=== PATIENT | female | born 1985 | race Two or more races ===

== ENCOUNTER 2018-03-13 10:59 | Inpatient (IN) | payer MEDICAID ==
[~2018-03-13] VITALS: Ht 175.3 cm; Wt 106.8 kg
[2018-03-13 12:00] VITALS: BP 119/74
[2018-03-13] MEDS ORDERED: D5%-LACTATED RINGERS 1,000 ML IV SCH (13:50)
[2018-03-13] MEDS ORDERED: OXYTOCIN 30U/ 0.9% NaCL 500ML 500 ML IV ONE (13:50)
[2018-03-13] MEDS ORDERED: LACTATED RINGERS 1,000 ML IV SCH ×2 (13:50→23:26)
[2018-03-13] MEDS ORDERED: SODIUM CHLORIDE FLUSH 10ML SYR IVF PRN (14:00)
[2018-03-13] MEDS ORDERED: SODIUM CITRATE/CITRIC ACID 30 ML UDC PO PRN (14:00)
[2018-03-13] MEDS ORDERED: CALCIUM CARBONATE 500 MG TAB.CHEW PO PRN (14:00)
[2018-03-13] MEDS ORDERED: METOCLOPRAMIDE 5 MG/ML, 2ML IVPush PRN (14:00)
[2018-03-13] MEDS ORDERED: FENTANYL PF 100 MCG/2ML IVPush PRN (14:00)
[2018-03-13] MEDS ORDERED: ONDANSETRON 2MG/ML, 2ML IVPush PRN (14:00)
[2018-03-13] MEDS ORDERED: FENTANYL PF 100 MCG/2ML IV PRN (14:00)
[2018-03-13] MEDS: CLINDAMYCIN PMX 900MG/50ML 50 ML IV SCH ×2 (15:00→22:34)
[2018-03-13 15:36] LABS: MEAN CORPUSCULAR HEMOGLOBIN 31.3 pg (27.0-34.8); MEAN CORPUSCULAR HGB CONC 33.9 g/dL (32.4-35.8); MEAN CORPUSCULAR VOLUME 92.3 fL (80-100); PLATELET COUNT 113 x10^3/uL (130-400); RED BLOOD COUNT 4.16 x10^6/uL (3.82-5.3); RED CELL DISTRIBUTION WIDTH 14.1 % (9.6-15.2)
[2018-03-13 15:37] LABS: MD YES
[2018-03-13 16:59] LABS: BAND#(MANUAL) 0.12 x10^3/uL; BANDS%(MANUAL) 1 % (0-7); LYMPH#(MANUAL) 2.71 x10^3/uL (1-3.4); LYMPHS% (MANUAL) 22 % (22-44); MONOS#(MANUAL) 0.62 x10^3/uL (0.3-2.7); MONOS% (MANUAL) 5 % (2-9); SEG#(MANUAL) 8.86 x10^3/uL (1.8-6.8); SEGS% (MANUAL) 72 % (42-75)
[2018-03-13 17:01] LABS: <RBC MORPHOLOGY> NORMAL
[2018-03-13 17:02] LABS: GIANT PLATELETS 1+
[2018-03-13 17:03] LABS: <PLATELET ESTIMATE> ADEQUATE
[2018-03-13] MEDS ORDERED: NEWBORN KIT ONE (18:32)
[2018-03-13] MEDS ORDERED: LIDOCAINE/PF 1%, 30ML ONE (18:33)
[2018-03-13] MEDS ORDERED: OXYTOCIN 30U/ 0.9% NaCL 500ML 500 ML ONE (18:34)
[2018-03-13] MEDS ORDERED: MISOPROSTOL 200 MCG TABLET ONE (18:34)
[2018-03-13] MEDS ORDERED: OXYTOCIN 30U/ 0.9% NaCL 500ML 500 ML IV PRN (21:50)
[2018-03-13] MEDS ORDERED: CLINDAMYCIN PMX 900MG/50ML 50 ML ONE ×2 (22:31)
[2018-03-13] MEDS ORDERED: FENTANYL PF 100 MCG/2ML ONE (23:17)
[2018-03-13] MEDS ORDERED: FENTANYL/BUPIV./NS/PF 250 ML EPIDCONT SCH (23:26)
[2018-03-13] MEDS ORDERED: LACTATED RINGERS 1,000 ML IVBOLUS PRN (23:30)
[2018-03-14] MEDS ORDERED: FENTANYL PF 100 MCG/2ML ONE (00:21)
[2018-03-14] MEDS ORDERED: FENTANYL/BUPIV./NS/PF 250 ML EPIDCONT ONE (00:22)
[2018-03-14] MEDS ORDERED: BUPIVACAINE/PF 0.5% ONE (00:22)
[2018-03-14] MEDS ORDERED: OXYTOCIN 30U/ 0.9% NaCL 500ML 500 ML ONE (04:28)
[2018-03-14] MEDS ORDERED: LACTATED RINGERS 500 ML IVBOLUS ONE (04:30)
[2018-03-14] MEDS ORDERED: ONDANSETRON 2MG/ML, 2ML IVPush PRN (04:30)
[2018-03-14] MEDS: OXYTOCIN 30U/ 0.9% NaCL 500ML 500 ML IV SCH ×2 (05:34→15:34)
[2018-03-14] MEDS ORDERED: OXYcodone/APAP 5/325MG TABLET PO PRN ×2 (06:00)
[2018-03-14] MEDS: CLINDAMYCIN PMX 900MG/50ML 50 ML IV SCH (07:00)
[2018-03-14 07:20] VITALS: BP 111/76
[2018-03-14] MEDS: PRENATAL VIT/IRON/FA 1 EACH TABLET PO SCH (09:00)
[2018-03-14] MEDS: IBUPROFEN 600 MG TABLET PO PRN ×2 (10:11→19:52)
[2018-03-14 11:53] LABS: MEAN CORPUSCULAR HEMOGLOBIN 31.2 pg (27.0-34.8); MEAN CORPUSCULAR HGB CONC 33.7 g/dL (32.4-35.8); MEAN CORPUSCULAR VOLUME 92.5 fL (80-100); RED BLOOD COUNT 4.22 x10^6/uL (3.82-5.3); RED CELL DISTRIBUTION WIDTH 14.1 % (9.6-15.2)
[2018-03-14 12:00] VITALS: BP 111/72
[2018-03-14 12:29] LABS: BANDS%(MANUAL) 7 % (0-7); LYMPH#(MANUAL) 0.91 x10^3/uL (1-3.4); LYMPHS% (MANUAL) 4 % (22-44); MD YES; MONOS#(MANUAL) 0.91 x10^3/uL (0.3-2.7); MONOS% (MANUAL) 4 % (2-9); SEG#(MANUAL) 19.38 x10^3/uL (1.8-6.8); SEGS% (MANUAL) 85 % (42-75)
[2018-03-14 12:44] LABS: <PLATELET ESTIMATE> ADEQUATE; <RBC MORPHOLOGY> NORMAL; GIANT PLATELETS 1+; LARGE PLATELETS 1+; MEAN PLATELET VOLUME 10.6 fL (7.4-10.4); PLATELET COUNT 125 x10^3/uL (130-400)
[2018-03-14 16:00] VITALS: BP 113/73
[2018-03-14 20:37] VITALS: BP 111/74
[2018-03-15] VITALS: BP 112/71
[2018-03-15 04:00] VITALS: BP 110/69
[2018-03-15] MEDS: IBUPROFEN 600 MG TABLET PO PRN (08:58)
[2018-03-15] MEDS: DOCUSATE 100 MG CAPSULE PO PRN ×2 (08:58→20:31)
[2018-03-15] MEDS: PRENATAL VIT/IRON/FA 1 EACH TABLET PO SCH (08:58)
[2018-03-15 09:00] VITALS: BP 104/54
[2018-03-15 20:30] VITALS: BP 134/81
[2018-03-16 07:30] VITALS: BP 119/80
[2018-03-16] MEDS: PRENATAL VIT/IRON/FA 1 EACH TABLET PO SCH (09:00)
[2018-03-16] MEDS ORDERED: IBUP-1222 PO (09:40)
== END 2018-03-16 17:35 | disposition home or self-care (01) | DRG 807 ==
LOC: LDOP 10:59 → LDIP 12:36 → 2NW 03-14 07:04 → EDSTATUS 03-16 10:59
PROVIDERS: ADMIT Obstetrics & Gynecology; ATTEND Obstetrics & Gynecology
PROC: 10E0XZZ Delivery of Products of Conception, External Approach (ICD-10-PCS; principal; 2018-03-13)
PROC: 3E0R3BZ Introduction of Anesthetic Agent into Spinal Canal, Percutaneous Approach (ICD-10-PCS; 2018-03-13)
PROC: 00HU33Z Insertion of Infusion Device into Spinal Canal, Percutaneous Approach (ICD-10-PCS; 2018-03-13)
DX: O99.824 Streptococcus B carrier state complicating childbirth (principal); Z37.0 Single live birth; O69.81X0 Labor and delivery complicated by cord around neck, without compression, not applicable or unspecified; O34.211 Maternal care for low transverse scar from previous cesarean delivery; Z3A.39 39 weeks gestation of pregnancy; Z88.0 Allergy status to penicillin
CPT/HCPCS: 36415; 85025; 86850; 86900; 89060; G0378; J3010; J7120; Q0114

== ENCOUNTER 2018-06-30 17:13 | Inpatient (IN) | payer MEDICAID, OTHER ==
[~2018-06-30] VITALS: Ht 175.3 cm; Wt 93.0 kg
[~2018-06-30 17:13] MED LIST: IBUP-1222 PO
[2018-06-30] MEDS ORDERED: MORPHINE SULFATE 4 MG/ML, 1ML ONE ×2 (17:48→19:30)
[2018-06-30] MEDS ORDERED: KETOROLAC 30 MG/1 ML ONE (17:48)
[2018-06-30] MEDS ORDERED: ONDANSETRON 2MG/ML, 2ML ONE ×3 (17:48→20:58)
[2018-06-30] MEDS: MORPHINE SULFATE 4 MG/ML, 1ML IVPush PRN ×2 (17:56→19:35)
[2018-06-30] MEDS ORDERED: KETOROLAC 30 MG/1 ML IVPush ONE (18:00)
[2018-06-30] MEDS ORDERED: ONDANSETRON 2MG/ML, 2ML IVPush ONE ×2 (18:00→20:00)
[2018-06-30] MEDS ORDERED: SODIUM CHLORIDE FLUSH 10ML SYR IVF ONE (18:00)
--- NOTE | 2018-06-30 18:00 | NUR ---
PT PRESENTING TO ER FOR LEFT SIDE ABD PAIN WITH SOME LEFT FLANK PAIN STARTING THIS AFTERNOON WITH N/V. UA COLLECTED AND SENT, TEA/BLOOD TINGE COLOR TO IT. CONNECTED TO MONITORING, VSS. PT APPEARING PALE STATES CANNOT GET COMFORTABLE. MD TO BEDSIDE, ORDERS RECEIVED. FAMILY AT BEDSIDE. CALL LIGHT WITHIN REACH
--- NOTE | 2018-06-30 18:05 | NUR ---
PT MEDICATED PER JUL FOR PAIN AND NAUSEA. WHILE GETTING MEDS PT HAD ONE BOUT OF VOMITTING, APPROX 200MLS
[2018-06-30 18:08] LABS: CULTURE INDICATED? YES; MICROSCOPIC INDICATED
[2018-06-30 18:11] LABS: ALANINE AMINOTRANSFERASE 20 U/L (12-78); ALBUMIN 4.5 g/dL (3.4-5.0); CALCIUM 8.8 mg/dL (8.5-10.1); CREATININE 1.12 mg/dL (0.55-1.02)
[2018-06-30 18:16] LABS: ALKALINE PHOSPHATASE 57 U/L (45-117); ANION GAP 10 mmol/L (5-15); BILIRUBIN,TOTAL 1.2 mg/dL (0.2-1.0); TOTAL PROTEIN 7.7 g/dL (6.4-8.2)
[2018-06-30 18:18] LABS: CHLORIDE 108 mmol/L (98-107)
--- NOTE | 2018-06-30 18:33 | NUR ---
PT TAKEN TO CT
[2018-06-30 18:46] LABS: MD YES; MEAN CORPUSCULAR HGB CONC 34.3 g/dL (32.4-35.8); MEAN CORPUSCULAR VOLUME 90.3 fL (80-100); MEAN PLATELET VOLUME 11.1 fL (7.4-10.4); PLATELET COUNT 154 x10^3/uL (130-400); RED BLOOD COUNT 5.04 x10^6/uL (3.82-5.3); RED CELL DISTRIBUTION WIDTH 13.4 % (9.6-15.2)
[2018-06-30 18:47] LABS: <PLATELET ESTIMATE> ADEQUATE; <RBC MORPHOLOGY> NORMAL; BAND#(MANUAL) 1.34 x10^3/uL; BANDS%(MANUAL) 8 % (0-7); LYMPH#(MANUAL) 1.18 x10^3/uL (1-3.4); LYMPHS% (MANUAL) 7 % (22-44); MONOS#(MANUAL) 0.34 x10^3/uL (0.3-2.7); MONOS% (MANUAL) 2 % (2-9); SEGS% (MANUAL) 83 % (42-75)
[2018-06-30 18:48] LABS: GIANT PLATELETS 1+
--- NOTE | 2018-06-30 18:51 | NUR ---
STRAIGHT CATH UA COLLECTED AND SENT TO LAB PER MD REQUEST. AWAITING RESULTS AND RECHECK. NADN. FAMILY AT BEDSIDE. CALL LIGHT WITHIN REACH
[2018-06-30 18:59] LABS: CULTURE INDICATED? YES; MICROSCOPIC INDICATED
--- NOTE | 2018-06-30 19:05 | NUR ---
MD AT BEDSIDE TO UPDATE PT AND FAMILY ON POC
--- NOTE | 2018-06-30 19:15 | NUR ---
ALL RESULTS BACK AT THIS TIME, CHART UP FOR RECHECK
[2018-06-30] MEDS ORDERED: CEFTRIAXONE PMX 1GM/50ML 50 ML ONE (19:19)
--- NOTE | 2018-06-30 19:24 | NUR ---
ABX STARTED PER MD CARMEN STATES NO BLOOD CULTURES NEEDED. MD AT BEDSIDE TO UPDATE PT AND FAMILY ON POC.
[2018-06-30] MEDS ORDERED: CEFTRIAXONE PMX 1GM/50ML 50 ML IV ONE (19:30)
--- NOTE | 2018-06-30 19:34 | NUR ---
SECOND DOSE MORPHINE GIVEN WITH ZOFRAN 4MG (VERBAL ORDER) FOR PAIN AND NAUSEA. PT TO BE ADMITTED TO [facility]
--- NOTE | 2018-06-30 19:43 | NUR ---
REPORT GIVEN TO OR, PT TO BE TAKEN IN NEXT 10 MINUTES. PT UPDATED AND CURRENTLY GETTING COMPLETELY UNDRESSED
--- NOTE | 2018-06-30 19:49 | NUR ---
HOSPITALIST AT BEDSIDE FOR ADMIT. PT BEING TAKEN TO OR NOW
[2018-06-30] MEDS ORDERED: POLYETHYLENE GLYCOL 17 GM PACKET PO PRN (20:30)
[2018-06-30] MEDS ORDERED: ACETAMINOPHEN 325 MG TABLET PO PRN (20:30)
[2018-06-30] MEDS ORDERED: BISACODYL 10 MG SUPP PR PRN (20:30)
[2018-06-30] MEDS ORDERED: FENTANYL PF 250 MCG/5ML ONE (20:47)
[2018-06-30] MEDS ORDERED: PROPOFOL 10 MG/ML, 20ML ONE (20:58)
[2018-06-30] MEDS ORDERED: ROCURONIUM 10MG/ML,5ML ONE (20:58)
[2018-06-30] MEDS ORDERED: DEXAMETHASONE 4 MG/ML, 1ML ONE (20:58)
[2018-06-30] MEDS ORDERED: FENTANYL PF 100 MCG/2ML IV PRN (21:30)
[2018-06-30] MEDS ORDERED: HYDROmorphone 2 MG/ML, 1ML IVPush PRN (21:30)
[2018-06-30] MEDS ORDERED: MIDAZOLAM 1 MG/ML, 2ML IV PRN (21:30)
[2018-06-30] MEDS ORDERED: PROMETHAZINE 25 MG/ML, 1ML IV PRN (21:30)
[2018-06-30] MEDS ORDERED: LABETALOL 5MG/ML, 20ML IV PRN (21:30)
[2018-06-30] MEDS ORDERED: OXYcodone 5 MG/5 ML ORAL.SOL UDC PO PRN (21:30)
[2018-06-30] MEDS ORDERED: hydrALAzine 20 MG/ML, 1ML IV PRN (21:30)
[2018-06-30] MEDS ORDERED: ONDANSETRON 2MG/ML, 2ML IV PRN (21:30)
[2018-06-30] MEDS ORDERED: MEPERIDINE/PF 25MG/0.5ML IVPush PRN (21:30)
[2018-06-30 23:33] VITALS: BP 131/91
[2018-07-01] MEDS: NS + 20MEQ KCL 1,000 ML IV SCH ×3 (00:12→16:37)
[2018-07-01] MEDS: KETOROLAC 30 MG/1 ML IV PRN ×2 (00:12→07:28)
[2018-07-01 01:26] VITALS: BP 114/77
[2018-07-01] MEDS: OXYcodone IR 5MG TABLET PO PRN ×2 (02:45→10:16)
[2018-07-01] MEDS: ONDANSETRON 2MG/ML, 2ML IVPush PRN ×2 (02:53→10:16)
[2018-07-01 06:22] LABS: MEAN CORPUSCULAR HGB CONC 34.2 g/dL (32.4-35.8); MEAN CORPUSCULAR VOLUME 90.7 fL (80-100); MEAN PLATELET VOLUME 13.8 fL (7.4-10.4); PLATELET COUNT 145 x10^3/uL (130-400); RED BLOOD COUNT 4.73 x10^6/uL (3.82-5.3); RED CELL DISTRIBUTION WIDTH 13.3 % (9.6-15.2)
[2018-07-01 06:33] LABS: ALBUMIN 3.6 g/dL (3.4-5.0); ANION GAP 7 mmol/L (5-15); CALCIUM 8.7 mg/dL (8.5-10.1); CHLORIDE 111 mmol/L (98-107)
[2018-07-01 06:35] LABS: MD YES
[2018-07-01 06:37] LABS: <PLATELET ESTIMATE> ADEQUATE; <RBC MORPHOLOGY> NORMAL; ALANINE AMINOTRANSFERASE 15 U/L (12-78); ALKALINE PHOSPHATASE 49 U/L (45-117); BAND#(MANUAL) 2.32 x10^3/uL; BANDS%(MANUAL) 12 % (0-7); BILIRUBIN,TOTAL 1.6 mg/dL (0.2-1.0); CREATININE 1.21 mg/dL (0.55-1.02); LARGE PLATELETS 1+; LYMPH#(MANUAL) 0.58 x10^3/uL (1-3.4); LYMPHS% (MANUAL) 3 % (22-44); MONOS#(MANUAL) 1.93 x10^3/uL (0.3-2.7); MONOS% (MANUAL) 10 % (2-9); SEG#(MANUAL) 14.48 x10^3/uL (1.8-6.8); SEGS% (MANUAL) 75 % (42-75); TOTAL PROTEIN 6.5 g/dL (6.4-8.2)
[2018-07-01] MEDS: SENNA/DOCUSATE TABLET PO SCH (08:08)
[2018-07-01 08:41] VITALS: BP 111/78
[2018-07-01 13:25] VITALS: BP 116/75
[2018-07-01] MEDS: HYDROcodone/APAP 5/325 TABLET PO PRN ×3 (15:00→23:30)
[2018-07-01 19:48] VITALS: BP 125/85
[2018-07-01] MEDS: CEFTRIAXONE PMX 1GM/50ML 50 ML IV SCH (20:38)
[2018-07-02] MEDS: NS + 20MEQ KCL 1,000 ML IV SCH ×2 (00:57→12:30)
[2018-07-02 00:58] VITALS: BP 108/67
[2018-07-02] MEDS: HYDROcodone/APAP 5/325 TABLET PO PRN ×5 (05:33→19:01)
[2018-07-02 08:43] VITALS: BP 100/66
[2018-07-02] MEDS: SENNA/DOCUSATE TABLET PO SCH (09:36)
[2018-07-02 14:10] VITALS: BP 122/84
[2018-07-02 16:17] LABS: ANION GAP 6 mmol/L (5-15); CALCIUM 8.4 mg/dL (8.5-10.1); CHLORIDE 108 mmol/L (98-107); CREATININE 0.88 mg/dL (0.55-1.02)
[2018-07-02 16:29] LABS: <PLATELET ESTIMATE> DECREASED; <RBC MORPHOLOGY> NORMAL; BASOPHILS # (AUTO) 0.04 x10^3/uL (0-0.1); BASOPHILS % (AUTO) 0 % (0-1); EOSINOPHILS % (AUTO) 0 % (1-7); LYMPHOCYTES % (AUTO) 5 % (22-44); MD MORPH REVIEW ONLY; MEAN CORPUSCULAR VOLUME 91.2 fL (80-100); MONOCYTES # (AUTO) 0.88 x10^3/uL (0.2-0.8); MONOCYTES % (AUTO) 7 % (2-9); NEUTROPHILS # (AUTO) 10.92 x10^3/uL (1.8-6.8); NEUTROPHILS % (AUTO) 88 % (42-75); PLATELET COUNT 114 x10^3/uL (130-400); RED CELL DISTRIBUTION WIDTH 13.4 % (9.6-15.2)
[2018-07-02 16:31] LABS: LARGE PLATELETS 2+
[2018-07-02] MEDS: CEFTRIAXONE PMX 1GM/50ML 50 ML IV SCH (19:01)
[2018-07-02 19:17] VITALS: BP 132/82
[2018-07-02] MEDS: ONDANSETRON 2MG/ML, 2ML IVPush PRN (20:03)
[2018-07-03] MEDS: HYDROcodone/APAP 5/325 TABLET PO PRN ×4 (01:01→13:13)
[2018-07-03 03:01] VITALS: BP 116/76
[2018-07-03 07:50] VITALS: BP 106/71
[2018-07-03 08:47] VITALS: BP 107/71
[2018-07-03] MEDS: SENNA/DOCUSATE TABLET PO SCH (08:49)
[2018-07-03] MEDS ORDERED: CEFD300C37 PO (12:59)
[2018-07-03 13:14] VITALS: BP 117/78
[2018-07-03] MEDS ORDERED: HYDR-3240 PO ×2 (13:53→13:56)
[2018-07-03] MEDS ORDERED: KETO10TA PO (13:55)
== END 2018-07-03 14:23 | disposition home or self-care (01) | DRG 854 ==
LOC: OR 19:41 → EDIP 19:44 → 4NOR 22:53 → DCLOUNGE 07-03 14:06
PROVIDERS: ADMIT Hospitalist; ATTEND Hospitalist
PROC: 0TC78ZZ Extirpation of Matter from Left Ureter, Via Natural or Artificial Opening Endoscopic (ICD-10-PCS; 2018-06-30)
PROC: BT1F1ZZ Fluoroscopy of Left Kidney, Ureter and Bladder using Low Osmolar Contrast (ICD-10-PCS; 2018-06-30)
PROC: 0T9B70Z Drainage of Bladder with Drainage Device, Via Natural or Artificial Opening (ICD-10-PCS; 2018-06-30)
PROC: 0T778DZ Dilation of Left Ureter with Intraluminal Device, Via Natural or Artificial Opening Endoscopic (ICD-10-PCS; principal; 2018-06-30 20:30)
DX: A41.9 Sepsis, unspecified organism (principal); N13.6 Pyonephrosis; R17 Unspecified jaundice; E87.6 Hypokalemia; F12.90 Cannabis use, unspecified, uncomplicated; R00.1 Bradycardia, unspecified; Z16.29 Resistance to other single specified antibiotic; Z88.0 Allergy status to penicillin
CPT/HCPCS: 36415; 74176; 80048; 80053; 81001; 82360; 83690; 84703; 85025; 87077; 87086; 87186; 88300; 96365; 96375; 99285; C1726; G0378; J0696; J1100; J1885; J2405; J2704; J3010; J3480; C1758; C2617

== ENCOUNTER 2018-11-03 17:23 | Inpatient (IN) | payer OTHER ==
[~2018-11-03] VITALS: Ht 175.3 cm; Wt 83.3 kg
[~2018-11-03 17:23] MED LIST changes: +CEFD300C37 PO; +HYDR-3240 PO; +KETO10TA PO
--- NOTE | 2018-11-03 18:58 | NUR ---
CALLED FOR ROOM, NO ANSWER.
[2018-11-03 19:03] LABS: ALANINE AMINOTRANSFERASE 16 U/L (12-78); ALBUMIN 4.5 g/dL (3.4-5.0); ANION GAP 9 mmol/L (5-15); CALCIUM 9.2 mg/dL (8.5-10.1); CHLORIDE 107 mmol/L (98-107); CREATININE 1.37 mg/dL (0.55-1.02)
[2018-11-03 19:07] LABS: ALKALINE PHOSPHATASE 55 U/L (45-117); BILIRUBIN,TOTAL 1.3 mg/dL (0.2-1.0); TOTAL PROTEIN 8.3 g/dL (6.4-8.2)
[2018-11-03 19:16] LABS: MEAN CORPUSCULAR HEMOGLOBIN 29.5 pg (27.0-34.8); MEAN CORPUSCULAR HGB CONC 32.7 g/dL (32.4-35.8); MEAN CORPUSCULAR VOLUME 90.2 fL (80-100); MEAN PLATELET VOLUME 13.6 fL (7.4-10.4); PLATELET COUNT 185 x10^3/uL (130-400); RED BLOOD COUNT 5.27 x10^6/uL (3.82-5.3); RED CELL DISTRIBUTION WIDTH 14.3 % (9.6-15.2)
[2018-11-03 19:18] LABS: BASOPHILS # (AUTO) 0.07 x10^3/uL (0-0.1); BASOPHILS % (AUTO) 0 % (0-1); EOSINOPHILS # (AUTO) 0.08 x10^3/uL (0-0.4); EOSINOPHILS % (AUTO) 1 % (1-7); LYMPHOCYTES # (AUTO) 1.54 x10^3/uL (1-3.4); LYMPHOCYTES % (AUTO) 9 % (22-44); MD SCAN; MONOCYTES # (AUTO) 0.82 x10^3/uL (0.2-0.8); MONOCYTES % (AUTO) 5 % (2-9); NEUTROPHILS # (AUTO) 15.12 x10^3/uL (1.8-6.8); NEUTROPHILS % (AUTO) 86 % (42-75)
--- NOTE | 2018-11-03 19:29 | NUR ---
CALLED X3 PT IS NOT IN LOBBY PT ELOPED
--- NOTE | 2018-11-03 19:31 | NUR ---
pt to room from lobby
--- NOTE | 2018-11-03 19:41 | NUR ---
PT PRESENTING TO ER FOR RIGHT FLANK PAIN STARTING ABOUT 1 WK AGO NOW RADIATING AROUND TO ABD CAUSING N/V. HX OF KIDNEY STONES. PIT ORDERS COMPLETED, UA PENDING. AWAITING MD ASSESSMENT AND FURTHER ORDERS AT THIS TIME. VSS, CALL LIGHT WITHIN REACH
[2018-11-03 19:44] LABS: CULTURE INDICATED? YES; MICROSCOPIC INDICATED
--- NOTE | 2018-11-03 19:50 | NUR ---
PA TO BEDSIDE FOR ASSESSMENT. ADDITIONAL ORDERS RECEIVED FOR US AND MEDS. WILL CONTINUE TO MONITOR
[2018-11-03] MEDS ORDERED: ONDANSETRON ODT 4 MG ONE (19:54)
--- NOTE | 2018-11-03 19:57 | NUR ---
PT MEDICATED PER JUL FOR NAUSEA. AWAITING US
[2018-11-03] MEDS ORDERED: SODIUM CHLORIDE 0.9% 1,000ML IVBOLUS ONE (20:00)
[2018-11-03] MEDS ORDERED: SODIUM CHLORIDE FLUSH 10ML SYR IVF ONE (20:00)
[2018-11-03] MEDS ORDERED: ONDANSETRON ODT 4 MG PO ONE (20:00)
[2018-11-03] MEDS ORDERED: LEVOFLOXACIN/PMX 750MG/150ML 150 ML ONE (20:28)
[2018-11-03] MEDS ORDERED: LEVOFLOXACIN/PMX 750MG/150ML 150 ML IV ONE (20:30)
--- NOTE | 2018-11-03 20:31 | NUR ---
ABX STARTED PER JUL. AWAITING US AT THIS TIME. ANNMARIE. KADEEM. CALL LIGHT WITHIN REACH
--- NOTE | 2018-11-03 21:06 | NUR ---
PA TO BEDSIDE TO UPDATE PT ON POC. SUGGESTING ADMIT
--- NOTE | 2018-11-03 21:48 | NUR ---
TAKEN TO CT
--- NOTE | 2018-11-03 21:53 | NUR ---
REPORT GIVEN TO EDWARD LINO, PT READY FOR TRANSFER TO FLOOR
[2018-11-03] MEDS ORDERED: ONDANSETRON 2MG/ML, 2ML IVPush PRN (22:00)
[2018-11-03] MEDS ORDERED: BISACODYL 10 MG SUPP PR PRN (22:00)
[2018-11-03 22:12] VITALS: BP 128/86
[2018-11-03] MEDS: SODIUM CHLORIDE 0.9% 1,000 ML IV SCH (22:41)
[2018-11-04] MEDS ORDERED: MIDAZOLAM 1 MG/ML, 2ML ONE (00:09)
[2018-11-04] MEDS ORDERED: FENTANYL PF 100 MCG/2ML ONE ×2 (00:09→10:54)
[2018-11-04] MEDS ORDERED: SUCCINYLCHOLINE 20 MG/ML, 10ML ONE (00:21)
[2018-11-04] MEDS ORDERED: PROPOFOL 10 MG/ML, 20ML ONE (00:21)
[2018-11-04] MEDS ORDERED: DEXAMETHASONE 4 MG/ML, 1ML ONE (00:21)
[2018-11-04] MEDS ORDERED: ONDANSETRON 2MG/ML, 2ML ONE (00:21)
[2018-11-04] MEDS ORDERED: ROCURONIUM 10MG/ML,5ML ONE (00:21)
[2018-11-04] MEDS ORDERED: CEFAZOLIN 1,000 MG ONE (00:21)
[2018-11-04] MEDS ORDERED: ALBUTEROL/IPRATROPIUM 2.5MG/0.5MG, 3 ML NPPB PRN (00:30)
[2018-11-04] MEDS ORDERED: PROMETHAZINE 25 MG/ML, 1ML IV PRN (00:30)
[2018-11-04] MEDS ORDERED: OXYcodone 5 MG/5 ML ORAL.SOL UDC PO PRN (00:30)
[2018-11-04] MEDS ORDERED: FENTANYL PF 100 MCG/2ML IV PRN (00:30)
[2018-11-04] MEDS ORDERED: MIDAZOLAM 1 MG/ML, 2ML IV PRN (00:30)
[2018-11-04] MEDS ORDERED: hydrALAzine 20 MG/ML, 1ML IV PRN (00:30)
[2018-11-04] MEDS ORDERED: SCOPOLAMINE PATCH, 1.5MG PATCH.TD72 TD PRN (00:30)
[2018-11-04] MEDS ORDERED: ACETAMINOPHEN 325 MG TABLET PO PRN (00:30)
[2018-11-04] MEDS ORDERED: MEPERIDINE/PF 25MG/0.5ML IVPush PRN (00:30)
[2018-11-04] MEDS ORDERED: HYDROmorphone 2 MG/ML, 1ML IVPush PRN (00:30)
[2018-11-04] MEDS ORDERED: ONDANSETRON 2MG/ML, 2ML IV PRN (00:30)
[2018-11-04 01:35] VITALS: BP 109/82
[2018-11-04] MEDS: morphine SULFATE 10 MG/ML, 1ML IVPush PRN ×2 (03:28→17:15)
[2018-11-04] MEDS ORDERED: KETOROLAC 30 MG/1 ML IVPush ONE (04:00)
[2018-11-04] MEDS ORDERED: PROMETHAZINE 25 MG/ML, 1ML IM PRN (04:00)
[2018-11-04 05:12] LABS: MEAN CORPUSCULAR HEMOGLOBIN 28.7 pg (27.0-34.8); MEAN CORPUSCULAR VOLUME 89.6 fL (80-100); PLATELET COUNT 147 x10^3/uL (130-400); RED BLOOD COUNT 4.87 x10^6/uL (3.82-5.3); RED CELL DISTRIBUTION WIDTH 13.9 % (9.6-15.2)
[2018-11-04 05:22] LABS: ALBUMIN 3.7 g/dL (3.4-5.0); ANION GAP 9 mmol/L (5-15); CALCIUM 8.4 mg/dL (8.5-10.1); CHLORIDE 110 mmol/L (98-107)
[2018-11-04 05:25] LABS: ALANINE AMINOTRANSFERASE 14 U/L (12-78); ALKALINE PHOSPHATASE 49 U/L (45-117); BILIRUBIN,TOTAL 1.5 mg/dL (0.2-1.0); TOTAL PROTEIN 7.1 g/dL (6.4-8.2)
[2018-11-04 05:50] LABS: BASOPHILS % (AUTO) 0 % (0-1); EOSINOPHILS # (AUTO) 0.01 x10^3/uL (0-0.4); EOSINOPHILS % (AUTO) 0 % (1-7); LYMPHOCYTES # (AUTO) 0.71 x10^3/uL (1-3.4); LYMPHOCYTES % (AUTO) 5 % (22-44); MD SCAN; MONOCYTES # (AUTO) 0.06 x10^3/uL (0.2-0.8); MONOCYTES % (AUTO) 0 % (2-9); NEUTROPHILS % (AUTO) 95 % (42-75)
[2018-11-04 06:58] VITALS: BP 151/91
[2018-11-04] MEDS: SODIUM CHLORIDE 0.9% 1,000 ML IV SCH ×3 (10:30→20:22)
[2018-11-04] MEDS ORDERED: LIDOCAINE-MPF 1%, 5ML ONE (10:51)
[2018-11-04] MEDS ORDERED: MIDAZOLAM 1 MG/ML, 5ML ONE ×2 (10:54)
[2018-11-04] MEDS ORDERED: FLUMAZENIL 0.1 MG/1 ML, 5ML ONE (10:58)
[2018-11-04] MEDS ORDERED: NALOXONE 1 MG/ML, 2ML ONE (10:58)
[2018-11-04 13:34] VITALS: BP 136/70
[2018-11-04 19:28] VITALS: BP 137/93
[2018-11-04] MEDS ORDERED: LEVOFLOXACIN/PMX 500MG/100ML 100 ML IV SCH (20:00)
[2018-11-05 01:02] VITALS: BP 131/88
[2018-11-05 05:29] LABS: ANION GAP 8 mmol/L (5-15); CALCIUM 8.6 mg/dL (8.5-10.1); CHLORIDE 111 mmol/L (98-107)
[2018-11-05 05:32] LABS: CREATININE 1.18 mg/dL (0.55-1.02)
[2018-11-05] MEDS: SODIUM CHLORIDE 0.9% 1,000 ML IV SCH (05:42)
[2018-11-05 06:00] LABS: MEAN CORPUSCULAR HGB CONC 32.5 g/dL (32.4-35.8); MEAN CORPUSCULAR VOLUME 89.1 fL (80-100); MEAN PLATELET VOLUME 13.6 fL (7.4-10.4); PLATELET COUNT 131 x10^3/uL (130-400); RED CELL DISTRIBUTION WIDTH 14.4 % (9.6-15.2)
[2018-11-05 06:01] LABS: BASOPHILS % (AUTO) 0 % (0-1); EOSINOPHILS % (AUTO) 0 % (1-7); LYMPHOCYTES % (AUTO) 17 % (22-44); MD SCAN; MONOCYTES % (AUTO) 6 % (2-9); NEUTROPHILS % (AUTO) 76 % (42-75)
[2018-11-05 06:15] LABS: EOSINOPHILS # (AUTO) 0.03 x10^3/uL (0-0.4); LYMPHOCYTES # (AUTO) 2.36 x10^3/uL (1-3.4); MONOCYTES # (AUTO) 0.84 x10^3/uL (0.2-0.8); NEUTROPHILS # (AUTO) 10.41 x10^3/uL (1.8-6.8)
[2018-11-05 06:16] LABS: BASOPHILS # (AUTO) 0.02 x10^3/uL (0-0.1)
[2018-11-05 06:50] VITALS: BP 125/87
[2018-11-05] MEDS ORDERED: LEVO500T47 PO (14:25)
[2018-11-05] MEDS ORDERED: ACET325C5 PO (14:25)
== END 2018-11-05 16:45 | disposition home or self-care (01) | DRG 661 ==
LOC: ED 21:18 → EDIP 21:20 → 3NE 22:00 → DCLOUNGE 11-05 16:30
PROVIDERS: ADMIT Internal Medicine; ATTEND Internal Medicine
PROC: BT141ZZ Fluoroscopy of Kidneys, Ureters and Bladder using Low Osmolar Contrast (ICD-10-PCS; 2018-11-03)
PROC: 0T768DZ Dilation of Right Ureter with Intraluminal Device, Via Natural or Artificial Opening Endoscopic (ICD-10-PCS; principal; 2018-11-03 23:30)
PROC: 0T913ZZ Drainage of Left Kidney, Percutaneous Approach (ICD-10-PCS; 2018-11-04)
DX: N13.6 Pyonephrosis (principal); B96.20 Unspecified Escherichia coli [E. coli] as the cause of diseases classified elsewhere; N17.9 Acute kidney failure, unspecified; Z88.0 Allergy status to penicillin; R00.0 Tachycardia, unspecified
CPT/HCPCS: 36415; 50432; 74176; 74420; 76770; 80048; 80053; 81001; 83605; 84145; 84703; 85025; 87077; 87086; 87186; 96365; 99156; 99157; C1894; G0378; J0690; J1100; J1885; J1956; J2250; J2405; J2550; J2704; J3010; Q0162; C1729; C1751; C1769; C2617; J0330; J2270; J2310; J7030

== ENCOUNTER 2018-11-08 05:26 | Inpatient (IN) | payer SELFPAY ==
[~2018-11-08] VITALS: Ht 175.3 cm; Wt 80.3 kg
[~2018-11-08 05:26] MED LIST changes: +ACET325C5 PO; +LEVO500T47 PO
[2018-11-08] MEDS ORDERED: ONDA4TAB7 PO (05:33)
--- NOTE | 2018-11-08 06:04 | NUR ---
PT AMBULATED STEADILY TO BATHROOM WITH RN TO PROVIDE UA SAMPLE. URINE DARK. SAMPLE COLLECTED. NEPHROSTOMY BAG EMPTIED, SAMPLE TO BE RETRIEVED FROM NEPHROSTOMY BAG WHEN PRODUCED. PT REPORTS LAST EMPTIED "AROUND 3AM", VERY LITTLE, BRIGHT RED URINE EMPTIED. BP/SPO2 MONITOR IN PLACE. PT PWD; DENIES ABD PAIN/FEVER. ON ABX FOLLOWING PLACEMENT OF L NEPHROSTOMY TUBE. SITE BANDAGED, APPEARS CLEAN/NO DRAINAGE NOTED.
[2018-11-08 06:33] LABS: CULTURE INDICATED? YES; MICROSCOPIC INDICATED
[2018-11-08] MEDS ORDERED: ONDANSETRON ODT 4 MG ONE (06:39)
--- NOTE | 2018-11-08 06:52 | NUR ---
Received bedside report from ZOIE Soriano. KADEEM. No needs expressed. Call light within reach. All questions answered.
[2018-11-08] MEDS ORDERED: ONDANSETRON ODT 4 MG PO ONE (07:00)
[2018-11-08 07:01] LABS: ANION GAP 6 mmol/L (5-15); CHLORIDE 107 mmol/L (98-107); CREATININE 1.15 mg/dL (0.55-1.02)
[2018-11-08 07:02] LABS: ALANINE AMINOTRANSFERASE 17 U/L (12-78); ALBUMIN 3.8 g/dL (3.4-5.0)
[2018-11-08 07:04] LABS: ALKALINE PHOSPHATASE 47 U/L (45-117); BILIRUBIN,TOTAL 1.6 mg/dL (0.2-1.0); TOTAL PROTEIN 7.1 g/dL (6.4-8.2)
[2018-11-08 07:11] LABS: BASOPHILS # (AUTO) 0.05 x10^3/uL (0-0.1); BASOPHILS % (AUTO) 0 % (0-1); EOSINOPHILS % (AUTO) 0 % (1-7); LYMPHOCYTES # (AUTO) 0.85 x10^3/uL (1-3.4); LYMPHOCYTES % (AUTO) 5 % (22-44); MD SCAN; MEAN CORPUSCULAR HEMOGLOBIN 29.8 pg (27.0-34.8); MEAN CORPUSCULAR VOLUME 90.2 fL (80-100); MEAN PLATELET VOLUME 13.6 fL (7.4-10.4); MONOCYTES # (AUTO) 0.42 x10^3/uL (0.2-0.8); MONOCYTES % (AUTO) 2 % (2-9); NEUTROPHILS # (AUTO) 16.37 x10^3/uL (1.8-6.8); NEUTROPHILS % (AUTO) 93 % (42-75); PLATELET COUNT 173 x10^3/uL (130-400); RED BLOOD COUNT 4.89 x10^6/uL (3.82-5.3); RED CELL DISTRIBUTION WIDTH 14.7 % (9.6-15.2)
[2018-11-08 07:19] LABS: MICROSCOPIC INDICATED
[2018-11-08] MEDS ORDERED: CEFDINIR 300 MG CAPSULE PO ONE (08:30)
[2018-11-08] MEDS ORDERED: CEFDINIR 300 MG CAPSULE ONE (09:03)
[2018-11-08] MEDS ORDERED: CEFTRIAXONE PMX 1GM/50ML 50 ML IV ONE ×2 (09:30→10:00)
[2018-11-08] MEDS ORDERED: SODIUM CHLORIDE 0.9% 1,000 ML IV SCH (09:32)
--- NOTE | 2018-11-08 09:34 | NUR ---
Attepmted to call report to [facility] for ZOIE Henao for room [id number]. No answer. Will call back at later time.
--- NOTE | 2018-11-08 09:51 | NUR ---
Provided report to ZOIE Henao. Pt ready to transfer to floor from ED. All questions answered.
[2018-11-08] MEDS ORDERED: ONDANSETRON 2MG/ML, 2ML IVPush PRN (10:00)
[2018-11-08] MEDS ORDERED: ONDANSETRON ODT 4 MG PO PRN (10:00)
[2018-11-08] MEDS ORDERED: ACETAMINOPHEN 325 MG TABLET PO PRN (10:00)
[2018-11-08] MEDS ORDERED: hydrALAzine 20 MG/ML, 1ML IVPush PRN (10:00)
[2018-11-08] MEDS ORDERED: PROMETHAZINE 25 MG/ML, 1ML IM PRN (10:00)
[2018-11-08] MEDS ORDERED: POTASSIUM CHLORIDE 40 MEQ in SODIUM CHLORIDE 0.9% 500 ML IV ONE (10:00)
[2018-11-08] MEDS ORDERED: HYDROcodone/APAP 5/325 TABLET PO PRN (10:00)
[2018-11-08] MEDS ORDERED: POLYETHYLENE GLYCOL 17 GM PACKET PO PRN (10:00)
[2018-11-08] MEDS ORDERED: BISACODYL 10 MG SUPP PR PRN (10:00)
[2018-11-08] MEDS ORDERED: morphine SULFATE 10 MG/ML, 1ML IVPush PRN (10:00)
[2018-11-08] MEDS ORDERED: SENNA/DOCUSATE TABLET PO SCH (10:00)
[2018-11-08 10:07] LABS: FREE T4 (FREE THYROXINE) 1.33 ng/dL (0.76-1.46); THYROID STIMULATING HORMONE 0.778 mIU/L (0.358-3.740)
--- NOTE | 2018-11-08 10:09 | NUR ---
Pt transfered to floor from ED and left with all personal belongings.
[2018-11-08] MEDS ORDERED: CEFTRIAXONE PMX 2GM/50ML 50 ML IV SCH (10:30)
[2018-11-08 10:35] LABS: HEMOGLOBIN A1C 4.7 % (4.2-6.3)
[2018-11-08 10:48] VITALS: BP 131/90
[2018-11-08 13:22] VITALS: BP 152/94
== END 2018-11-08 18:17 | disposition left against medical advice (07) | DRG 690 ==
LOC: ED 08:42 → 4NOR 10:09
PROVIDERS: ADMIT Internal Medicine; ATTEND Internal Medicine
DX: N13.6 Pyonephrosis (principal); N17.0 Acute kidney failure with tubular necrosis; F12.90 Cannabis use, unspecified, uncomplicated; R31.0 Gross hematuria; Z16.23 Resistance to quinolones and fluoroquinolones; E87.6 Hypokalemia; B96.20 Unspecified Escherichia coli [E. coli] as the cause of diseases classified elsewhere; Z53.21 Procedure and treatment not carried out due to patient leaving prior to being seen by health care provider; Z88.0 Allergy status to penicillin
CPT/HCPCS: 36415; 76770; 80053; 81001; 83036; 83735; 84439; 84443; 85025; 87086; G0378; J0696; J3480; Q0162; J7030; J7040